=== PATIENT | female | born 2000 | race Caucasian/White ===

== ENCOUNTER 2021-09-24 01:38 | Emergency (ER) | payer OTHER ==
[2021-09-24] MEDS ORDERED: Ondansetron PF 4 MG/2 ML Vial ONE (01:51)
== END 2021-09-24 03:45 | disposition home or self-care (01) ==
LOC: ERS 01:38
DX: F10.129 Alcohol abuse with intoxication, unspecified (principal)
CPT/HCPCS: 96374; J2405